=== PATIENT | male | born 1975 | race Two or more races ===

== ENCOUNTER 2017-12-10 00:05 | Emergency (ER) | payer BC ==
[~2017-12-10] VITALS: Ht 167.6 cm; Wt 81.6 kg
[2017-12-10 00:49] LABS: Basophils # (auto) 0.1 uL; Basophils % (auto) 0.5 % (0.0-2.0); Eosinophils # (auto) 0.3 uL; Eosinophils % (auto) 2.5 % (0.0-7.0); Hematocrit 47.2 % (41.0-53.0); Hemoglobin 15.8 g/dL (13.5-17.5); Lymphocytes # (auto) 2.4 uL; Mean Corpuscular Hemoglobin 29.4 pg (28.0-32.0); Mean Corpuscular Hgb Conc. 33.5 g/dL (32.0-36.0); Mean Corpuscular Volume 87.6 fL (80.0-100.0); Monocytes # (auto) 0.8 uL; Monocytes % (auto) 7.1 % (0.0-12.0); Neutrophils % (auto) 68.9 % (37.0-80.0); Platelet Count (auto) 261 10^3/uL (140-450); Red Blood Cells 5.39 10^6/uL (4.5-5.90); White Blood Cell 11.6 10^3/uL (4.4-10.8)
[2017-12-10 01:08] LABS: Albumin 4.2 g/dL (3.4-5.0); Amylase 46 U/L (25-115); Anion Gap 10 (5-15); BUN/Creatinine Ratio 18.2; Blood Urea Nitrogen 20 mg/dL (7-18); Calcium 8.9 mg/dL (8.5-10.1); Carbon Dioxide 25 mmol/L (21-32); Chloride 103 mmol/L (98-107); GFR African American 94 mL/min; GFR Non-African American 78 mL/min; Glucose 103 mg/dL (74-106); Lipase 127 U/L (73-393); Potassium 4.2 mmol/L (3.5-5.1); Sodium 138 mmol/L (136-145)
[2017-12-10 01:19] LABS: INR 1.06 (0.9-1.15); Partial Thromboplastin Time 25.6 sec (23.78-33.04); Prothrombin Time 11.3 sec (9.27-12.13)
[2017-12-10 01:21] LABS: Alanine Aminotransferase 35 U/L (16-61); Alkaline Phosphatase 126 U/L (45-117); Aspartate Aminotransferase 18 U/L (15-37); Bilirubin, Total 0.8 mg/dL (0.2-1.0); Total Protein 8.2 g/dL (6.4-8.2)
[2017-12-10] MEDS ORDERED: PANTOPRAZOLE 40 MG TAB PO ONE (06:30)
[2017-12-10 08:19] VITALS: BP 130/82
== END 2017-12-10 08:08 | disposition home or self-care (01) ==
LOC: ER 00:09
DX: K29.70 Gastritis, unspecified, without bleeding (principal)
CPT/HCPCS: 36415; 74176; 80053; 82150; 83690; 84484; 85025; 85610; 85730